=== PATIENT | female | born 1950 | race Caucasian/White ===

== ENCOUNTER 2025-08-02 13:11 | Emergency (ER) | payer MEDICARE ==
[~2025-08-02] VITALS: Ht 149.9 cm; Wt 68.2 kg
[2025-08-02 13:14] VITALS: TEMP 98
--- NOTE | 2025-08-02 13:53 | Physician Documentation ---
History of Present Illness ~ Chief Complaint: Mechanical Fall Stated Complaint: FALL Time Seen by MD: 13:52 HPI 74-year-old female who presents with a fall She tells me that she was wearing socks and slipped on a wooden floor. She did fall backwards and hit her head, and twisted her right leg. She denies loss of consciousness. Denies current headache. She does report some pain in the right lateral neck. She also reports pain in her right knee and ankle. She was not able to stand or bear weight. She has some mild right hip pain and back pain, but denies that it is serious She did take some Tylenol and use some ice. No other acute concerns or injuries Medication Reconciliation Allergies: Coded Allergies: Sulfa (Sulfonamide Antibiotics) (Unverified Allergy, Unknown, 08/02/25) Review of Systems Constitutional: Denies: fever Neurological: Denies: headache Musculoskeletal: Reports: pain, swelling Physical Exam Vital Signs: Temperature: 98.0, Source: Temporal, Heart Rate: 77, Respiratory Rate: 16, BP: 135/75, Pulse Oximetry: 99, Weight: 68.180 Oxygen Flow Rate: 0 Physical Exam General: This is a pleasant and overall well-appearing older woman, daughter at bedside HEENT: Atraumatic, no tenderness on palpation of the scalp, no hematoma or laceration, oropharynx is moist Neck: No midline tenderness on palpation of the C-spine. She does have reproducible tenderness on palpation of the right paracervical muscles Heart: Regular rate and rhythm, normal-appearing peripheral perfusion Lungs: normal work of breathing, normal oxygen saturation on room air Extremities: Warm and well-perfused Right lower extremity: The patient has focal tenderness and crunching sensation on palpation over the proximal fibula, as well as tenderness on palpation over the medial and lateral malleolus. No significant tenderness on palpation of the right hip, and no hip pain with rotation. No tenderness on palpation of the bones of the foot Neuro: Alert and oriented Psychiatric: Calm and cooperative with exam Progress Results/Orders Results/Orders Orders - THEODORA SAEED MD Knee, Complete (08/02/25 13:44) Ankle, Complete(3vw Min) (08/02/25 13:44) Ct Head (08/02/25 14:27) Ct Cervical Spine (08/02/25 14:27) Completed Orders - THEODORA SAEED MD, Complete (08/02/25 13:44) Ankle, Complete(3vw Min) (08/02/25 13:44) Ct Head (08/02/25 14:27) Ct Cervical Spine (08/02/25 14:27) Hydrocodone/Apap 5/325mg Tab ([place] 5/32 (08/02/25 15:35) Medications Received in ER Medications (Trade) Dose Ordered Sig/Bernabe Route PRN Reason Start Time Stop Time Status Last Admin Dose Admin ([place] 5/325mg tablet) 1 tab ONCE ONCE PO 08/02/25 15:35 08/02/25 15:36 DC 08/02/25 15:56 1 TAB Vital Signs 08/02/25 08/02/25 13:14 14:07 Temp 98.0 Pulse 77 69 Resp 16 15 B/P (MAP) 135/75 139/85 (103) Pulse Ox 99 97 O2 Flow Rate 0 EKG/XRAY/CT/US/VASC/MRI Bone/Soft Tissue X-Ray (Ext.) : Additional Comment I personally interpreted the x-ray, and it shows: Fibular shaft fracture, posterior malleolus fracture, no dislocation CT : Impression I personally interpreted the CT scan, and this shows no fracture or intracranial hemorrhage Medical Decision Making Additional information obtaine: family Findings spoke to daughter Differential Dx:Considerations: Include: Closed head injury, Fracture(s), Spine injury, Contusion(s), Hematoma(s) Additional Comment The patient presents with a fall. She did hit her head and has some neck pain, but the neck pain seems muscular. CT head and neck without fracture or hemorrhage. She also has right knee and ankle pain. On exam this is concerning for fracture. X-rays do show fibular and tibia fractures. She was placed in a splint, given crutches and nonweightbearing status. She was given pain medication. She will be discharged with a plan to follow up with an orthopedist when she returns home this week Departure Time of Disposition: 15:15 Disposition: 01 HOME / SELF CARE / HOMELESS Impression: Primary Impression: Ankle fracture Additional Impressions: Fibular upper end fracture Ground-level fall Condition: Stable Discharge Instructions: Ankle Fracture Referrals: NO PRIMARY CARE PROVIDER (PCP) Education Educated: Patient, Family Educated regarding: diagnosis, treatment, need for follow up Signature Scribe Signature: na Attestation: THEODORA Saldana MD Aug 02, 2025 13:53
--- NOTE | 2025-08-02 14:01 | RADIOLOGY REPORT ---
CLINICAL INFORMATION: KNEE PAIN. TECHNIQUE: 3 views of the right knee were obtained. COMPARISON: None FINDINGS: Acute spiral fracture of the proximal fibular diaphysis without significant displacement demonstrated. Mild joint space narrowing in all 3 compartments of the right knee. Mild soft tissue swelling adjacent to the proximal fibula fracture. No significant joint effusion. IMPRESSION: Acute fracture of the proximal fibular diaphysis.
[2025-08-02 14:07] VITALS: BP 139/85; PULSE 69; RESP 15; O2SAT 97
--- NOTE | 2025-08-02 14:10 | RADIOLOGY REPORT ---
CLINICAL INFORMATION: Ankle pain. TECHNIQUE: 3 views of the right ankle were obtained. Additional AP view was obtained of the right lower leg, to include the proximal fibular fracture which was also seen on same day right knee radiographs. COMPARISON: None FINDINGS: Acute fracture of the posterior malleolus with mild displacement posteriorly up to 3 mm. Small avulsion fracture fragment at the inferior margin of the medial malleolus measures up to 3 mm. Acute spiral fracture of the proximal fibular diaphysis without significant displacement demonstrated. There is chronic appearing deformity of the distal fibula on the mortise view, may be sequelae of old trauma, although not well correlated on the other views. Talar dome is smooth. No widening at the ankle mortise. No significant arthropathy. Adjacent soft tissues are unremarkable. IMPRESSION: 1. Acute fractures involving the posterior malleolus, proximal fibular diaphysis, and avulsion fracture at the medial malleolus (Frankel C stage IV). 2. Possible mild chronic deformity at the lateral malleolus seen on 1 view only, may be sequelae of old trauma.
--- NOTE | 2025-08-02 14:39 | RADIOLOGY REPORT ---
EXAM: CT CT HEAD INDICATION: Fall, head injury, neck pain TECHNIQUE: CT images of the head were obtained without administration of IV contrast. CT scans at this facility use dose modulation, iterative reconstruction, and/or weight based dosing when appropriate to reduce radiation dose to as low as reasonably achievable. COMPARISON: None FINDINGS: PARENCHYMA: No acute hemorrhage. There is no mass effect, midline shift, or herniation. There is preservation of the durand white differentiation. Moderate scattered hypoattenuation along the periventricular, centrum semiovale, and deep white matter tracts, which are nonspecific however statistically most likely represent chronic microvascular ischemic change. VENTRICLES: No hydrocephalus. EXTRA-AXIAL SPACES: No extra-axial fluid collections. OTHER: The bony structures are intact. Visualized portions of the paranasal sinuses and mastoid air cells are clear. IMPRESSION: 1. No CT evidence of an acute intracranial abnormality.
--- NOTE | 2025-08-02 14:41 | RADIOLOGY REPORT ---
EXAM: CT CT CERVICAL SPINE INDICATION: Fall, head injury, neck pain TECHNIQUE: Non contrast axial images of the cervical spine have been obtained with coronal and sagittal reformatted images. CT scans at this facility use dose modulation, iterative reconstruction, and/or weight based dosing when appropriate to reduce radiation dose to as low as reasonably achievable. COMPARISON: None FINDINGS: ANATOMY: Straightening of the normal cervical lordosis, which may be seen in the setting of patient positioning versus muscular spasm. VERTEBRAL BODIES: The vertebral bodies are normal in height and alignment. The dens is intact, the lateral masses of C1 are normally aligned, and the atlantodental interval is normal for age. SPINAL CANAL: No significant spinal canal stenosis. INTERVERTEBRAL DISCS: No CT findings to suggest traumatic disc herniation or acute hematoma. SOFT TISSUES: There is no prevertebral soft tissue swelling. OTHER: The partially visualized lung apices are clear. IMPRESSION: 1. No acute cervical spine fracture or malalignment.
[2025-08-02] MEDS ORDERED: HYDR-3965 PO ×2 (15:42→18:17)
[2025-08-02] MEDS: HYDROcodone/acetaminophen 5mg/325mg tablet PO ONE (15:56)
== END 2025-08-02 16:01 | disposition home or self-care (01) ==
LOC: ER 13:11
DX: S82.61XA Displaced fracture of lateral malleolus of right fibula, initial encounter for closed fracture (principal); Z88.2 Allergy status to sulfonamides; W18.30XA Fall on same level, unspecified, initial encounter; Y93.89 Activity, other specified; Y92.89 Other specified places as the place of occurrence of the external cause; Y99.8 Other external cause status
CPT/HCPCS: 70450; 72125; 73564; 73610; 99284; A6446; A6449